=== PATIENT | female | born 1995 | race Two or more races ===

== ENCOUNTER 2023-01-28 08:03 | Inpatient (IN) | payer OTHER ==
[2023-01-28 22:03] LABS: POTASSIUM 3.9 mmol/L (3.5-5.1)
[2023-01-28 22:05] LABS: CALCIUM 7.7 mg/dL (8.5-10.1)
[2023-01-28 22:06] LABS: ALBUMIN 1.7 g/dl (3.4-5.0)
[2023-01-28 22:10] LABS: BILIRUBIN,TOTAL 0.3 mg/dL (0.2-1)
[2023-01-28 22:11] LABS: TOT PROT 5.2 g/dl (6.4-8.2)
[2023-01-28] MEDS ORDERED: LABETALOL HCL 100 MG TABLET (FP) ONE (22:40)
[2023-01-28] MEDS: LABETALOL HCL 100 MG TABLET (FP) PO SCH (22:45)
[2023-01-28 23:22] LABS: BASO % 0.6 % (0-2.0); EOS % 0.8 % (0-4.5); HEMATOCRIT 29.4 % (32.4-45.2); HEMOGLOBIN 9.7 GM/dL (10.7-15.3); LYMPH % 17.5 % (8-40); MCHC 32.8 g/dl (32.0-36.0); MEAN CELL VOLUME 82.1 fl (80-96); MEAN PLT VOLUME 9.8 fl (7.5-11.1); MONO % 5.1 % (3.8-10.2); PLATELET COUNT 196 10^3/uL (134-434); RBC 3.58 M/mm3 (3.60-5.2); RDW 16.1 % (11.6-15.6)
[2023-01-29 00:35] VITALS: BMI 47.5
[2023-01-29] MEDS: LEVOTHYROXINE NA 100 MCG TABLET (FP) PO SCH (06:39)
[2023-01-29] MEDS: FERROUS SO4 325 MG TABLET (FP) PO SCH ×2 (09:40→16:39)
[2023-01-29] MEDS ORDERED: INSULIN (LEVEMIR) 100 UNITS/ML UNITS SQ ONE (11:30)
[2023-01-29] MEDS: LABETALOL HCL 100 MG TABLET (FP) PO SCH (17:33)
[2023-01-29] MEDS: INSULIN (LEVEMIR) 100 UNITS/ML UNITS SQ SCH (22:22)
[2023-01-30] MEDS: LABETALOL HCL 100 MG TABLET (FP) PO SCH ×3 (00:01→21:29)
[2023-01-30] MEDS: LEVOTHYROXINE NA 100 MCG TABLET (FP) PO SCH (06:22)
[2023-01-30] MEDS: INSULIN (LEVEMIR) 100 UNITS/ML UNITS SQ SCH ×2 (06:23→21:30)
[2023-01-30 08:02] LABS: BASO % 0.5 % (0-2.0); EOS % 0.9 % (0-4.5); HEMATOCRIT 31.2 % (32.4-45.2); HEMOGLOBIN 10.2 GM/dL (10.7-15.3); LYMPH % 16.3 % (8-40); MCH 27.6 pg (25.7-33.7); MCHC 32.7 g/dl (32.0-36.0); MEAN CELL VOLUME 84.4 fl (80-96); MEAN PLT VOLUME 10.4 fl (7.5-11.1); MONO % 5.6 % (3.8-10.2); NEUT % 76.7 % (42.8-82.8); PLATELET COUNT 203 10^3/uL (134-434); RDW 15.7 % (11.6-15.6); WHITE BLOOD COUNT 10.5 K/mm3 (4.0-10.0)
[2023-01-30] MEDS: FERROUS SO4 325 MG TABLET (FP) PO SCH ×2 (09:12→17:01)
[2023-01-30 10:04] LABS: POTASSIUM 4.2 mmol/L (3.5-5.1)
[2023-01-30 10:18] LABS: BLOOD UREA NITROGEN 12.6 mg/dL (7-18); CALCIUM 7.7 mg/dL (8.5-10.1)
[2023-01-30 10:19] LABS: ALBUMIN 1.5 g/dl (3.4-5.0); CREATININE 0.6 mg/dL (0.55-1.3)
[2023-01-30 10:20] LABS: BILIRUBIN,TOTAL 0.1 mg/dL (0.2-1)
[2023-01-30 10:21] LABS: TOT PROT 4.8 g/dl (6.4-8.2)
[2023-01-30] MEDS ORDERED: INSULIN (NOVOLOG) ASPART 100 UNITS/ML 10ML VIAL SQ ONE (10:55)
[2023-01-30] MEDS ORDERED: INSULIN SLIDING SCALE (NOVOLOG) 1 VIAL SQ ONE (11:07)
[2023-01-30] MEDS ORDERED: NIFEdipine 10 MG CAPSULE (FP) PO ONE (18:00)
[2023-01-31] MEDS: LEVOTHYROXINE NA 100 MCG TABLET (FP) PO SCH (06:07)
[2023-01-31] MEDS: INSULIN (LEVEMIR) 100 UNITS/ML UNITS SQ SCH ×2 (10:30→21:19)
[2023-01-31] MEDS: FERROUS SO4 325 MG TABLET (FP) PO SCH ×2 (10:30→17:35)
[2023-01-31] MEDS: LABETALOL HCL 100 MG TABLET (FP) PO SCH ×2 (10:33→22:18)
[2023-01-31] MEDS ORDERED: INSULIN SLIDING SCALE (NOVOLOG) 1 VIAL SQ ONE (11:40)
[2023-01-31] MEDS: INSULIN (NOVOLOG) ASPART 100 UNITS/ML 10ML VIAL SQ SCH ×2 (13:15→17:35)
[2023-01-31] MEDS ORDERED: NIFEdipine E.R. 30 MG TABLET PO SCH (17:30)
[2023-01-31] MEDS ORDERED: NIFEdipine 10 MG CAPSULE (FP) PO ONE (20:45)
[2023-01-31 22:29] LABS: BASO % 0.4 % (0-2.0); HEMATOCRIT 31.3 % (32.4-45.2); HEMOGLOBIN 10.4 GM/dL (10.7-15.3); LYMPH % 17.3 % (8-40); MCH 27.4 pg (25.7-33.7); MCHC 33.2 g/dl (32.0-36.0); MEAN CELL VOLUME 82.4 fl (80-96); MEAN PLT VOLUME 9.1 fl (7.5-11.1); MONO % 5.6 % (3.8-10.2); NEUT % 75.7 % (42.8-82.8); PLATELET COUNT 180 10^3/uL (134-434); RDW 16.2 % (11.6-15.6); WHITE BLOOD COUNT 12.6 K/mm3 (4.0-10.0)
[2023-01-31 22:56] LABS: CHLORIDE 113 mmol/L (98-107); POTASSIUM 3.9 mmol/L (3.5-5.1); SODIUM 145 mmol/L (136-145)
[2023-01-31 22:58] LABS: ALBUMIN 1.5 g/dl (3.4-5.0); ANION GAP 9 MMOL/L (8-16); BLOOD UREA NITROGEN 17.4 mg/dL (7-18); CALCIUM 7.8 mg/dL (8.5-10.1); CO2 23 mmol/L (21-32); GLUCOSE,RANDOM 116 mg/dL (74-106)
[2023-01-31 23:02] LABS: CREATININE 0.8 mg/dL (0.55-1.3); SGOT/AST 29 U/L (15-37)
[2023-01-31 23:03] LABS: TOT PROT 5.1 g/dl (6.4-8.2)
[2023-01-31 23:04] LABS: BILIRUBIN,TOTAL < 0.1 mg/dL (0.2-1)
[2023-01-31 23:06] LABS: ALK PHOS 129 U/L (45-117)
[2023-01-31 23:07] LABS: SGPT/ALT 28 U/L (13-61)
[2023-02-01] MEDS: LEVOTHYROXINE NA 100 MCG TABLET (FP) PO SCH (06:03)
[2023-02-01] MEDS: INSULIN (NOVOLOG) ASPART 100 UNITS/ML 10ML VIAL SQ SCH ×3 (08:46→16:57)
[2023-02-01] MEDS: FERROUS SO4 325 MG TABLET (FP) PO SCH ×2 (09:44→16:57)
[2023-02-01] MEDS: LABETALOL HCL 100 MG TABLET (FP) PO SCH ×2 (09:44→21:43)
[2023-02-01] MEDS: INSULIN (LEVEMIR) 100 UNITS/ML UNITS SQ SCH ×2 (09:44→21:40)
[2023-02-01] MEDS: NIFEdipine E.R. 30 MG TABLET PO SCH (16:57)
[2023-02-02] MEDS: LEVOTHYROXINE NA 100 MCG TABLET (FP) PO SCH (06:29)
[2023-02-02] MEDS: INSULIN (NOVOLOG) ASPART 100 UNITS/ML 10ML VIAL SQ SCH ×3 (09:31→16:59)
[2023-02-02] MEDS: LABETALOL HCL 100 MG TABLET (FP) PO SCH ×2 (09:37→22:01)
[2023-02-02] MEDS: FERROUS SO4 325 MG TABLET (FP) PO SCH ×2 (09:37→16:58)
[2023-02-02] MEDS: INSULIN (LEVEMIR) 100 UNITS/ML UNITS SQ SCH ×2 (10:58→22:02)
[2023-02-02] MEDS: NIFEdipine E.R. 30 MG TABLET PO SCH (16:59)
[2023-02-03] MEDS: LEVOTHYROXINE NA 100 MCG TABLET (FP) PO SCH (06:31)
[2023-02-03] MEDS: INSULIN (NOVOLOG) ASPART 100 UNITS/ML 10ML VIAL SQ SCH ×3 (08:25→16:55)
[2023-02-03] MEDS: LABETALOL HCL 100 MG TABLET (FP) PO SCH ×2 (09:56→21:58)
[2023-02-03] MEDS: FERROUS SO4 325 MG TABLET (FP) PO SCH ×2 (09:56→16:55)
[2023-02-03] MEDS: INSULIN (LEVEMIR) 100 UNITS/ML UNITS SQ SCH ×2 (09:56→22:00)
[2023-02-03] MEDS: NIFEdipine E.R. 30 MG TABLET PO SCH (16:55)
[2023-02-04] MEDS: LEVOTHYROXINE NA 100 MCG TABLET (FP) PO SCH (06:34)
[2023-02-04 06:58] LABS: BASO % 0.4 % (0-2.0); HEMATOCRIT 33.3 % (32.4-45.2); HEMOGLOBIN 10.6 GM/dL (10.7-15.3); LYMPH % 13.4 % (8-40); MCH 26.9 pg (25.7-33.7); MCHC 31.9 g/dl (32.0-36.0); MEAN CELL VOLUME 84.2 fl (80-96); MEAN PLT VOLUME 9.3 fl (7.5-11.1); MONO % 5.7 % (3.8-10.2); NEUT % 79.5 % (42.8-82.8); PLATELET COUNT 56 10^3/uL (134-434); RBC 3.95 M/mm3 (3.60-5.2); RDW 16.9 % (11.6-15.6); WHITE BLOOD COUNT 11.6 K/mm3 (4.0-10.0)
[2023-02-04 07:03] LABS: INR 0.9 (0.83-1.09); PROTHROMBIN TIME (PATIENT) 10.5 SEC (9.7-13.0)
[2023-02-04 07:06] LABS: ACTIVATED PTT 30.8 SECONDS (25.2-36.5)
[2023-02-04] MEDS: INSULIN (NOVOLOG) ASPART 100 UNITS/ML 10ML VIAL SQ SCH ×3 (08:21→17:42)
[2023-02-04] MEDS: FERROUS SO4 325 MG TABLET (FP) PO SCH ×2 (08:21→17:50)
[2023-02-04 08:22] LABS: ALBUMIN 1.4 g/dl (3.4-5.0); BILIRUBIN,TOTAL 0.3 mg/dL (0.2-1); BLOOD UREA NITROGEN 14.9 mg/dL (7-18); CALCIUM 7.8 mg/dL (8.5-10.1); CREATININE 0.7 mg/dL (0.55-1.3); TOT PROT 4.8 g/dl (6.4-8.2)
[2023-02-04] MEDS ORDERED: DINOPROSTONE 10 MG VAGINAL SUPPOSITORY VG ONE (08:46)
[2023-02-04] MEDS ORDERED: LABETALOL HCL 100 MG TABLET (FP) ONE ×2 (10:05→22:06)
[2023-02-04] MEDS: LABETALOL HCL 100 MG TABLET (FP) PO SCH ×2 (10:35→22:10)
[2023-02-04] MEDS: INSULIN (LEVEMIR) 100 UNITS/ML UNITS SQ SCH (10:57)
[2023-02-04] MEDS ORDERED: DEXTROSE 5%-LACTATED RINGERS 1,000 ML IV SCH (11:00)
[2023-02-04] MEDS ORDERED: SODIUM CHLORIDE 500 ML IV STA (12:10)
[2023-02-04 12:38] LABS: SYPHILIS W/ RPR CONF NON-REACTIVE (NONREACTIVE)
[2023-02-04 13:06] LABS: HIV INTERPRETATION NEGATIVE (NEGATIVE)
[2023-02-04 13:37] LABS: BASO % 0.4 % (0-2.0); EOS % 0.7 % (0-4.5); HEMATOCRIT 32.5 % (32.4-45.2); HEMOGLOBIN 10.6 GM/dL (10.7-15.3); LYMPH % 12.5 % (8-40); MCH 26.8 pg (25.7-33.7); MCHC 32.5 g/dl (32.0-36.0); MEAN CELL VOLUME 82.5 fl (80-96); MEAN PLT VOLUME 8.8 fl (7.5-11.1); MONO % 5.3 % (3.8-10.2); NEUT % 81.1 % (42.8-82.8); PLATELET COUNT 48 10^3/uL (134-434); RBC 3.94 M/mm3 (3.60-5.2); RDW 16.5 % (11.6-15.6); WHITE BLOOD COUNT 12.2 K/mm3 (4.0-10.0)
[2023-02-04 13:48] LABS: INR 0.9 (0.83-1.09); PROTHROMBIN TIME (PATIENT) 10.5 SEC (9.7-13.0)
[2023-02-04 13:50] LABS: ACTIVATED PTT 30.9 SECONDS (25.2-36.5)
[2023-02-04 14:37] LABS: CALCIUM 7.6 mg/dL (8.5-10.1); POTASSIUM 4.1 mmol/L (3.5-5.1)
[2023-02-04 14:38] LABS: ALBUMIN 1.4 g/dl (3.4-5.0); BLOOD UREA NITROGEN 16.4 mg/dL (7-18)
[2023-02-04 14:41] LABS: CREATININE 0.9 mg/dL (0.55-1.3)
[2023-02-04 14:43] LABS: BILIRUBIN,TOTAL 0.3 mg/dL (0.2-1); TOT PROT 5.1 g/dl (6.4-8.2)
[2023-02-04] MEDS ORDERED: PENICILLIN G POTASSIUM 20,000,000 (20Mm) UNITS VIAL IVPB ONE (17:02)
[2023-02-04] MEDS ORDERED: NIFEdipine E.R. 30 MG TABLET PO ONE (17:04)
[2023-02-04] MEDS: NIFEdipine E.R. 30 MG TABLET PO SCH (17:06)
[2023-02-04] MEDS ORDERED: PENICILLIN G POTASSIUM 5,000,000 UNIT/250 ML BAG IVPB ONE ×2 (17:09→17:15)
[2023-02-04] MEDS ORDERED: OXYTOCIN 30 UNITS in 0.9% NS 30 UNIT/500 ML INFUS.BAG IVPB ONE (17:10)
[2023-02-04] MEDS ORDERED: OXYTOCIN 30 UNITS in 0.9% NS 30 UNIT/500 ML INFUS.BAG IVPB SCH (17:15)
[2023-02-04] MEDS ORDERED: FERROUS SO4 325 MG TABLET (FP) ONE (17:50)
[2023-02-04] MEDS ORDERED: PENICILLIN G POTASSIUM 20,000,000 (20Mm) UNITS VIAL IVPB SCH (19:45)
[2023-02-04] MEDS: PENICILLIN G POTASSIUM 2,500,000 UNIT in SODIUM CHLORIDE 100 ML IVPB SCH (21:51)
[2023-02-04] MEDS ORDERED: NIFEdipine 10 MG CAPSULE (FP) PO SCH (22:15)
[2023-02-05] MEDS: PENICILLIN G POTASSIUM 2,500,000 UNIT in SODIUM CHLORIDE 100 ML IVPB SCH (00:53)
[2023-02-05] MEDS ORDERED: morphine SULFATE 4 MG/ML VIAL IVPB ONE (01:51)
[2023-02-05] MEDS ORDERED: OXYTOCIN 20 UNITS in 0.9% NS 20 UNIT/1,000 ML INFUS.BAG IV ONE (02:07)
[2023-02-05] MEDS ORDERED: morphine SULFATE 4 MG/ML VIAL ONE (03:30)
[2023-02-05] MEDS ORDERED: WITCH HAZEL 50% (TUCKS) 40 PAD/JAR PAD TP PRN (04:08)
[2023-02-05] MEDS ORDERED: IBUPROFEN 600 MG TABLET (FP) PO PRN (04:08)
[2023-02-05] MEDS ORDERED: BENZOCAINE 28 GM HEMORRHOIDAL OINTMENT TP PRN (04:08)
[2023-02-05] MEDS ORDERED: DEXTROSE 5%-LACTATED RINGERS 1,000 ML IV SCH (04:13)
[2023-02-05] MEDS ORDERED: MAGNESIUM 4GM/H20 - 4 GM/100 ML IVPB IVPB SCH (04:15)
[2023-02-05] MEDS ORDERED: OXYTOCIN 20 UNITS in 0.9% NS 20 UNIT/1,000 ML INFUS.BAG IV SCH (04:15)
[2023-02-05] MEDS ORDERED: MAGNESIUM SULFATE 20GM/500ML - 20 GM/500 ML INFUS.BAG IV SCH (04:15)
[2023-02-05 04:23] LABS: CORD BASE EXCESS -8.5 mmol/L (0-2); CORD HCO3 18.6 mmHg (20-29); CORD PCO2 44.3 mmHg (30-78); CORD pH 7.242 (7.14-7.44)
[2023-02-05] MEDS ORDERED: MAGNESIUM SULFATE 20GM/500ML - 20 GM/500 ML INFUS.BAG ONE (07:11)
[2023-02-05] MEDS ORDERED: INSULIN (LEVEMIR) 100 UNITS/ML UNITS SQ ONE (08:00)
[2023-02-05] MEDS ORDERED: INSULIN (LEVEMIR) 100 UNITS/ML UNITS SQ SCH (08:00)
[2023-02-05] MEDS ORDERED: INSULIN (NOVOLOG) ASPART 100 UNITS/ML 10ML VIAL ONE (08:35)
[2023-02-05] MEDS: INSULIN (NOVOLOG) ASPART 100 UNITS/ML 10ML VIAL SQ SCH ×4 (08:35→17:05)
[2023-02-05] MEDS: FERROUS SO4 325 MG TABLET (FP) PO SCH (08:45)
[2023-02-05] MEDS: LEVOTHYROXINE NA 100 MCG TABLET (FP) PO SCH (09:10)
[2023-02-05 12:06] LABS: BASO % 0.3 % (0-2.0); HEMATOCRIT 28.6 % (32.4-45.2); HEMOGLOBIN 9.1 GM/dL (10.7-15.3); LYMPH % 12.4 % (8-40); MCH 26.7 pg (25.7-33.7); MCHC 31.9 g/dl (32.0-36.0); MEAN CELL VOLUME 83.9 fl (80-96); MEAN PLT VOLUME 9.8 fl (7.5-11.1); MONO % 2.9 % (3.8-10.2); NEUT % 84.4 % (42.8-82.8); PLATELET COUNT 54 10^3/uL (134-434); RBC 3.41 M/mm3 (3.60-5.2); RDW 17.1 % (11.6-15.6)
[2023-02-05 12:37] LABS: POTASSIUM 4.7 mmol/L (3.5-5.1)
[2023-02-05 12:39] LABS: CALCIUM 7.1 mg/dL (8.5-10.1)
[2023-02-05 12:40] LABS: ALBUMIN 1.3 g/dl (3.4-5.0); BLOOD UREA NITROGEN 21.4 mg/dL (7-18)
[2023-02-05 12:43] LABS: CREATININE 1.2 mg/dL (0.55-1.3)
[2023-02-05 12:45] LABS: BILIRUBIN,TOTAL 0.3 mg/dL (0.2-1); TOT PROT 4.8 g/dl (6.4-8.2)
[2023-02-05] MEDS ORDERED: MAGNESIUM SULFATE 20GM/500ML - 20 GM/500 ML INFUS.BAG IVPB ONE (15:15)
[2023-02-06] MEDS: LEVOTHYROXINE NA 100 MCG TABLET (FP) PO SCH (06:26)
[2023-02-06] MEDS ORDERED: INSULIN (LEVEMIR) 100 UNITS/ML UNITS SQ ONE (08:00)
[2023-02-06 08:09] LABS: BASO % 0.3 % (0-2.0); EOS % 0.7 % (0-4.5); HEMATOCRIT 23.3 % (32.4-45.2); HEMOGLOBIN 7.7 GM/dL (10.7-15.3); LYMPH % 20.3 % (8-40); MCH 27.1 pg (25.7-33.7); MCHC 32.8 g/dl (32.0-36.0); MEAN CELL VOLUME 82.5 fl (80-96); MEAN PLT VOLUME 10.3 fl (7.5-11.1); MONO % 3.9 % (3.8-10.2); NEUT % 74.8 % (42.8-82.8); PLATELET COUNT 92 10^3/uL (134-434); RBC 2.83 M/mm3 (3.60-5.2); RDW 16.6 % (11.6-15.6); WHITE BLOOD COUNT 13.4 K/mm3 (4.0-10.0)
[2023-02-06 08:10] LABS: ALBUMIN 1.4 g/dl (3.4-5.0); BLOOD UREA NITROGEN 19.8 mg/dL (7-18)
[2023-02-06 08:15] LABS: BILIRUBIN,TOTAL 0.2 mg/dL (0.2-1); TOT PROT 4.7 g/dl (6.4-8.2)
[2023-02-06] MEDS: INSULIN (NOVOLOG) ASPART 100 UNITS/ML 10ML VIAL SQ SCH ×3 (08:57→18:09)
[2023-02-06] MEDS: FERROUS SO4 325 MG TABLET (FP) PO SCH ×3 (09:07→19:03)
[2023-02-06] MEDS: ACETAMINOPHEN 325 MG TABLET (FP) PO PRN ×2 (09:07→23:18)
[2023-02-06] MEDS ORDERED: DOCUSATE SODIUM 100 MG CAPSULE (FP) PO PRN (11:34)
[2023-02-07] MEDS: LEVOTHYROXINE NA 100 MCG TABLET (FP) PO SCH (06:36)
[2023-02-07 07:02] LABS: BASO % 0.5 % (0-2.0); EOS % 1.3 % (0-4.5); HEMATOCRIT 21.3 % (32.4-45.2); LYMPH % 18.2 % (8-40); MCH 27.7 pg (25.7-33.7); MCHC 32.5 g/dl (32.0-36.0); MEAN CELL VOLUME 85.4 fl (80-96); MEAN PLT VOLUME 10.2 fl (7.5-11.1); MONO % 5.1 % (3.8-10.2); NEUT % 74.9 % (42.8-82.8); PLATELET COUNT 131 10^3/uL (134-434); RDW 16.6 % (11.6-15.6); WHITE BLOOD COUNT 12.2 K/mm3 (4.0-10.0)
[2023-02-07 07:04] LABS: HEMOGLOBIN 6.9 GM/dL (10.7-15.3)
[2023-02-07 07:11] LABS: POTASSIUM 4.1 mmol/L (3.5-5.1)
[2023-02-07 07:18] LABS: CALCIUM 7.5 mg/dL (8.5-10.1)
[2023-02-07 07:19] LABS: ALBUMIN 1.5 g/dl (3.4-5.0); BLOOD UREA NITROGEN 18.3 mg/dL (7-18)
[2023-02-07 07:23] LABS: BILIRUBIN,TOTAL 0.2 mg/dL (0.2-1); TOT PROT 4.8 g/dl (6.4-8.2)
[2023-02-07] MEDS: ACETAMINOPHEN 325 MG TABLET (FP) PO PRN ×2 (08:05→21:08)
[2023-02-07] MEDS: FERROUS SO4 325 MG TABLET (FP) PO SCH ×2 (09:18→18:24)
[2023-02-07] MEDS: INSULIN (NOVOLOG) ASPART 100 UNITS/ML 10ML VIAL SQ SCH ×3 (09:18→17:35)
[2023-02-07] MEDS ORDERED: BETAMET ACET/BETAMET NA PH 30 MG/5 ML VIAL IM ONE (10:00)
[2023-02-07] MEDS ORDERED: INSULIN (NOVOLOG) ASPART 100 UNITS/ML 10ML VIAL SQ ONE ×3 (17:28→20:52)
[2023-02-07] MEDS: NIFEdipine E.R. 30 MG TABLET PO SCH (18:23)
[2023-02-08] MEDS: LEVOTHYROXINE NA 100 MCG TABLET (FP) PO SCH (06:34)
[2023-02-08 07:17] LABS: HEMATOCRIT 24.2 % (32.4-45.2); MCH 28.7 pg (25.7-33.7); MCHC 33.1 g/dl (32.0-36.0); MEAN CELL VOLUME 86.5 fl (80-96); MEAN PLT VOLUME 10.6 fl (7.5-11.1); PLATELET COUNT 182 10^3/uL (134-434); RDW 17.1 % (11.6-15.6); WHITE BLOOD COUNT 14.6 K/mm3 (4.0-10.0)
[2023-02-08 07:51] LABS: POTASSIUM 4.5 mmol/L (3.5-5.1)
[2023-02-08] MEDS ORDERED: INSULIN (LEVEMIR) 100 UNITS/ML UNITS SQ SCH (08:00)
[2023-02-08 08:07] LABS: ALBUMIN 1.7 g/dl (3.4-5.0); BLOOD UREA NITROGEN 22.5 mg/dL (7-18)
[2023-02-08 08:09] LABS: CREATININE 0.9 mg/dL (0.55-1.3)
[2023-02-08 08:10] LABS: BILIRUBIN,TOTAL 0.1 mg/dL (0.2-1); CALCIUM 7.7 mg/dL (8.5-10.1)
[2023-02-08 08:18] LABS: TOT PROT 5.3 g/dl (6.4-8.2)
[2023-02-08] MEDS: FERROUS SO4 325 MG TABLET (FP) PO SCH (08:43)
[2023-02-08 08:47] LABS: ANISOCYTOSIS 3+; MACROCYTOSIS 0
[2023-02-08] MEDS: INSULIN (NOVOLOG) ASPART 100 UNITS/ML 10ML VIAL SQ SCH ×2 (08:58→12:57)
[2023-02-08] MEDS: NIFEdipine E.R. 30 MG TABLET PO SCH (09:18)
[2023-02-08 10:23] VITALS: RESP 16; TEMP 97.8
[2023-02-08 10:33] VITALS: BP 132/86; PULSE 90
== END 2023-02-08 15:15 | disposition home or self-care (01) | DRG 560 ==
LOC: JLDR 08:03 → J3W 23:35 → OBSVTOIN 01-31 08:03 → JLDR 02-04 10:11 → J3W 02-05 20:34
PROVIDERS: ADMIT Obstetrics & Gynecology Maternal & Fetal Medicine; ATTEND Obstetrics & Gynecology Maternal & Fetal Medicine
PROC: 10E0XZZ Delivery of Products of Conception, External Approach (ICD-10-PCS; principal; 2023-02-05)
PROC: 0HQ9XZZ Repair Perineum Skin, External Approach (ICD-10-PCS; 2023-02-05)
DX: O14.23 HELLP syndrome (HELLP), third trimester (principal); O99.284 Endocrine, nutritional and metabolic diseases complicating childbirth; R80.9 Proteinuria, unspecified; O70.0 First degree perineal laceration during delivery; O24.113 Pre-existing type 2 diabetes mellitus, in pregnancy, third trimester; Z3A.36 36 weeks gestation of pregnancy; Z37.0 Single live birth
CPT/HCPCS: 36415; 36430; 36600; 80053; 82803; 82962; 83615; 84156; 85025; 85610; 85730; 86780; 86850; 86900; 86901; 86922; 87389; G0378; P9038; P9058